=== PATIENT | female | born 1930 | race Caucasian/White ===

== ENCOUNTER → 2018-11-09 | Outpatient (CLI) | payer OTHER ==
[~2018-11-09] MED LIST: CALTRATE-600 W1 EACH PO; CENTRUM SILVER1 EAC1 PO; FISH OIL 1,0001 EAC5 PO; MOTION RELIEF25 MG PO; SYNTHROID100 MCG PO; ZOFRAN4 MG PO
== END ==
LOC: M.CRD 08:52
DX: I08.3 Combined rheumatic disorders of mitral, aortic and tricuspid valves (principal); I48.91 Unspecified atrial fibrillation; Z88.8 Allergy status to other drugs, medicaments and biological substances